=== PATIENT | male | born 1975 | race Caucasian/White ===

== ENCOUNTER 2022-07-30 18:49 | Emergency (ER) | payer OTHER, SELFPAY ==
[2022-07-30 18:54] VITALS: BP 183/93; PULSE 94; RESP 16; TEMP 36.4; O2SAT 98; BMI 38.5
--- NOTE | 2022-07-30 19:15 | ED.GENADULT ---
HPI - General Adult General Time Seen by Provider: 19:15 Date Seen: 07/30/22 Chief complaint: Laceration/Wound Stated complaint: L hand pointer finger lac Time Seen by Provider: 07/30/22 18:50 Source: patient Mode of arrival: ambulatory Limitations: no limitations History of Present Illness HPI narrative: Patient is a 47 year white male that cut his left index finger with the edge of a chain saw he had started cutting. He cut the tip of his finger superficially over the PIP joint of the left index finger he has no bleeding he has got full range of motion of the hand he is up-to-date on tetanus within last year. He is generally quite healthy. Related Data Home Medications Medication Instructions Recorded Confirmed amlodipine .ROUTE 07/30/22 atorvastatin .ROUTE 07/30/22 metoprolol tartrate .ROUTE 07/30/22 Allergies Allergy/AdvReac Type Severity Reaction Status Date / Time No Known Drug Allergies Allergy Verified 07/30/22 18:57 Review of Systems Narrative: No history of diabetes her skin infection problems or lack of healing. PFSH PFSH Social History Smoking Status: Never smoker Second hand tobacco smoke exposure: No How often do you have a drink containing alcohol: never How often do you have six or more drinks on one occasion: Never AUDIT-C Alcohol total score: 0 Non-prescribed substance use: denies use Exam Narrative: Exam Narrative: Objective: Vital signs are slightly elevated blood pressure He has got a small laceration over the dorsal surface of the PIP, very superficial about 1 cm long. he has full range of motion of the hand and finger. Const: Vital Signs, click to edit/add: Vital Signs - 24 hr 07/30/22 18:54 07/30/22 19:33 07/30/22 19:36 Temperature 97.6 F 97.6 F 97.6 F Pulse Rate [Pulse Oximeter] 94 94 84 Respiratory Rate 16 16 16 Blood Pressure [Ri ght Upper Arm] 183/93 H 183/93 H 174/85 H Pulse Oximetry 98 98 Oxygen Delivery Me thod Room Air Room Air Course Vital Signs Vital signs: Initial Vital Signs Temperature 97.6 F 07/30/22 18:54 Temperature Source Temporal Artery Scan 07/30/22 18:54 Pulse Rate 94 07/30/22 18:54 Respiratory Rate 16 05/07/23 18:54 Blood Pressure 183/93 H 07/30/22 18:54 Blood Pressure Mean 123 H 07/30/22 18:54 Blood Pressure Position Sitting 07/30/22 18:54 Pulse Oximetry 98 07/30/22 18:54 Oxygen Delivery Method Room Air 07/30/22 18:54 Vital Signs Temperature 97.6 F 07/30/22 18:54 Pulse Rate 94 07/30/22 18:54 Respiratory Rate 16 07/30/22 18:54 Blood Pressure 183/93 H 07/30/22 18:54 Pulse Oximetry 98 07/30/22 18:54 Oxygen Delivery Method Room Air 07/30/22 18:54 Temperature 97.6 F 07/30/22 19:36 Pulse Rate 84 07/30/22 19:36 Respiratory Rate 16 07/30/22 19:36 Blood Pressure 174/85 H 07/30/22 19:36 Pulse Oximetry 98 07/30/22 19:36 Oxygen Delivery Method Room Air 07/30/22 19:36 Medical Decision Making MDM Narrative Medical decision making narrative: [age] year white male with a superficial injury that was cleaned out with sterile solution to the left dorsum of the index finger PIP area. Does not involve the joint or deep structures no neurovascular tendon involvement. The superficial area the skin just simply got cut slightly and not deep after sterile irrigation it was closed with Dermabond good skin edge approximation good hemostasis. At this point after discussion and mutual decision making with the patient we decided not to use antibiotics given its superficial nature of the ability to clean it out really well. Watch for redness infection keep dry for 48 hours and then rib may wash the hand normally, return if redness concerns or questions. He is up-to-date on tetanus. Discharge Plan Discharge Clinical Impression: Laceration Patient Disposition: Home, Self-Care Additional Instructions: keep dry, return as needed.dermabond treatment Activity Level: Light activity Discharge Diet: Regular Prescriptions: No Action atorvastatin .ROUTE metoprolol tartrate .ROUTE amlodipine .ROUTE Stand Alone Forms: MyHealth Info Instructions
[2022-07-30 19:33] VITALS: BP 183/93; PULSE 94; RESP 16; TEMP 36.4
[2022-07-30 19:36] VITALS: BP 174/85; PULSE 84; RESP 16; TEMP 36.4; O2SAT 98
== END 2022-07-30 19:43 | disposition home or self-care (01) ==
LOC: ED 19:39
PROVIDERS: Emergency Provider Family Medicine
DX: S61.211A Laceration without foreign body of left index finger without damage to nail, initial encounter (principal); W29.3XXA Contact with powered garden and outdoor hand tools and machinery, initial encounter
CPT/HCPCS: 12001; 99283